=== PATIENT | male | born 1960 | race Two or more races ===

== ENCOUNTER → 2025-01-06 | Outpatient (CLI) | payer MEDICAID, SELFPAY ==
--- NOTE | 2025-01-06 16:00 | XR_ITS ---
Examination: CT chest, without intravenous contrast. Sagittal and coronal 2-D reconstructions. Exam date and time: January 06, 2025 1645 hours INDICATIONS: Diagnosis solitary pulmonary nodule 6 months ago CTDI:vol (mGy) 12.5 DLP: (mGycm) 467 Technique: Multiple 3.0 mm axial sections of the chest to been obtained. Bone and lung density settings are obtained. Sagittal and coronal 2-D reconstructions have been obtained. Low dose protocols were performed. One or more of the following dose reduction techniques were used; automated exposure control, adjustment of the mA and/or KV according to patient size, use of iterative reconstruction technique. Findings: AP dimension ascending thoracic aorta 4.2 cm Pulmonary artery segments are not enlarged. No paratracheal tracheobronchial or bronchopulmonary adenopathy. 2 mm pulmonary nodule right upper lobe image 125 6 mm pulmonary nodule right lower lobe image 213 5 mm pulmonary nodule left lower lobe image 233 No pneumonia or pulmonary edema No visualized liver or splenic lesions Gallbladder wall appears mildly thickened IMPRESSION: Pulmonary nodules as above. Recommend 6 month follow-up CT chest without contrast Recommend hepatobiliary sonography to exclude gallbladder wall thickening
== END | disposition home or self-care (01) ==
PROVIDERS: PCP Internal Medicine; Referring Provider Internal Medicine; Visit Provider Internal Medicine
DX: R91.8 Other nonspecific abnormal finding of lung field (principal)
CPT/HCPCS: 71250

== ENCOUNTER → 2025-02-22 | Outpatient (CLI) | payer OTHER, MEDICAID, SELFPAY ==
[2025-02-21 16:44] LABS: Albumin, Serum 4.1 gm/dL (3.4-4.8); Anion Gap 9 (7-16); BUN/Creatinine Ratio 34 Ratio (12-20); Blood Urea Nitrogen 31 mg/dL (9-23); Calcium 9.7 mg/dL (8.3-10.6); Calcium (Corrected) 9.7 mg/dL (8.5-10.1); Carbon Dioxide 28.6 mMol/L (20.0-31.0); Chloride 106 mMol/L (98-107); Creatinine (Component) 0.9 mg/dL (0.6-1.3); Glucose 110 mg/dL (74-106); Osmolality,Calculated 294 (275-295); Phosphorous 2.8 mg/dL (2.4-5.1); Potassium 4.4 mMol/L (3.4-5.1); Sodium 144 mMol/L (136-145); eGFR > 60 See Note
--- NOTE | 2025-02-22 10:00 | XR_ITS ---
Examination: CT chest with intravenous contrast CT chest without intravenous contrast 2-D reconstructions Date and time of exam:February 22, 2025, 1001 hours, comparison January 06, 2025 INDICATIONS: 2 mm pulmonary nodule right upper lobe, 6 mm pulmonary nodule right lower lobe, 5 mm pulmonary nodule left lower lobe on CT chest January 06, 2025 CTDI:vol (mGy) 23.4 DLP: (mGycm) 930 Technique: Multiple axial sections of the thorax have been obtained. 3 mm slice thickness, from the hemidiaphragms to above the apices of the lungs. Mediastinal and lung density settings have been obtained. Intravenous contrast administered 60 cc [id number]. Noncontrast images have also been obtained. 2-D sagittal coronal images obtained. Low dose protocols were performed. One or more of the following dose reduction techniques were used; automated exposure control, adjustment of the mA and/or KV according to patient size, use of iterative reconstruction technique. Findings: Aneurysmal dilatation ascending thoracic aorta, AP dimension 4.3 cm No pulmonary artery filling defects No paratracheal tracheobronchial bronchopulmonary adenopathy. Mild enlargement cardiac contour. Stable bilateral subcentimeter pulmonary nodules No new pulmonary nodules No interval in pneumonia or pulmonary edema No visualized liver or splenic lesion No gallstones No hydronephrosis IMPRESSION: Aneurysmal dilatation ascending thoracic aorta, AP dimension 4.3 cm Stable bilateral subcentimeter pulmonary nodules, no new pulmonary nodules.
== END | disposition home or self-care (01) ==
PROVIDERS: PCP Nurse Practitioner; Referring Provider Nurse Practitioner; Visit Provider Nurse Practitioner
DX: I71.20 Thoracic aortic aneurysm, without rupture, unspecified (principal); R91.8 Other nonspecific abnormal finding of lung field
CPT/HCPCS: 36415; 71270; 80069; A4649; Q9967